=== PATIENT | male | born 1980 | race Caucasian/White ===

== ENCOUNTER 2017-02-11 14:14 | Emergency (ER) | payer MEDICAID ==
[~2017-02-11] VITALS: Ht 177.8 cm; Wt 74.8 kg
--- NOTE | 2017-02-11 14:38 | NUR ---
Dr Quach at the bedside for eval and exam.
[2017-02-11] MEDS ORDERED: HYDROCODONE/APAP 5-325MG TABLET PO ONE (14:45)
[2017-02-11] MEDS ORDERED: HYDROCODONE/APAP 5-325MG TABLET ONE (14:59)
--- NOTE | 2017-02-11 15:26 | NUR ---
Crutches dispensed. Pt instructed on proper use of crutches. Patient able to demonstrate correct use of crutches.
[2017-02-11 15:44] VITALS: BP 133/82
--- NOTE | 2017-02-11 15:44 | NUR ---
Patient discharged to home in stable conditon. Written and verbal after care instructions given. Patient verbalizes understanding of instructions.
== END 2017-02-11 15:44 | disposition home or self-care (01) ==
LOC: ER 14:14
DX: S82.861A Displaced Maisonneuve's fracture of right leg, initial encounter for closed fracture (principal); S93.402A Sprain of unspecified ligament of left ankle, initial encounter; Z88.0 Allergy status to penicillin; W01.0XXA Fall on same level from slipping, tripping and stumbling without subsequent striking against object, initial encounter; Y93.89 Activity, other specified; Y92.9 Unspecified place or not applicable; Y99.9 Unspecified external cause status
CPT/HCPCS: 73590; 73610; 73630; A4663